=== PATIENT | female | born 1935 | race Two or more races ===

== ENCOUNTER 2023-08-09 19:12 | Inpatient (IN) | payer OTHER ==
[~2023-08-09] VITALS: Ht 152.4 cm; Wt 45.4 kg
[2023-08-09] MEDS ORDERED: LIPITOR40 MG (19:14)
[2023-08-09 20:20] LABS: HEMATOCRIT 39.2 % (36.0-45.00); HEMOGLOBIN 12.1 g/dL (12.0-15.00); MEAN CELL VOLUME 85.2 fL (80.00-100.00); MEAN CORPUSCULAR HEMOGLOBIN 26.4 pg (27.00-32.0); PLATELET COUNT 363 K/uL (150-450); RED CELL DISTRIBUTION WIDTH 16.5 % (11.5-14.5)
[2023-08-09 20:47] LABS: CALCIUM 9.4 mg/dL (8.5-10.1); CREATININE SERUM 0.82 mg/dL (0.55-1.02); GFR 65.79; POTASSIUM 3.96 mEq/L (3.5-5.1)
[2023-08-09 22:43] LABS: PH,URINE 6.5 (5.0-8.0); URINE APPEARANCE Clear; URINE BILIRRUBIN Negative (NEGATIVE); URINE BLOOD Negative; URINE COLOR Dark Yellow; URINE GLUCOSE Negative (NEGATIVE); URINE LEUKOCYTE Negative; URINE NITRATE Negative
[2023-08-09 22:48] LABS: URINE BACTERIA 26.5 uL (0.0-1933); URINE EPITHELIAL CELLS 16.7 uL (0.0-38.8); URINE RBC 19.6 uL (0.0-20.8)
[2023-08-09 22:51] LABS: URINE PROTEIN 100 (NEGATIVE)
[2023-08-10 05:48] LABS: INR 1.36; PARTIAL THROMBOPLASTIN TIME 24.1 SECONDS (22.0-34.0)
[2023-08-12 08:22] LABS: CALCIUM 7.8 mg/dL (8.5-10.1); CREATININE SERUM 1.03 mg/dL (0.55-1.02); GFR 50.57
[2023-08-13 07:59] LABS: HEMATOCRIT 30.3 % (36.0-45.00); HEMOGLOBIN 9.9 g/dL (12.0-15.00); MEAN CELL VOLUME 82.8 fL (80.00-100.00); MEAN CORPUSCULAR HGB CONC 32.6 g/dl (32.0-36.0); PLATELET COUNT 314 K/uL (150-450); RED BLOOD COUNT 3.66 M/uL (4.00-6.00)
[2023-08-13 08:06] LABS: CALCIUM 7.3 mg/dL (8.5-10.1); CREATININE SERUM 0.99 mg/dL (0.55-1.02); GFR 52.93
[2023-08-13 09:20] LABS: POTASSIUM 2.76 mEq/L (3.5-5.1)
[2023-08-14 07:30] LABS: ALBUMIN 1.5 gm/dL (3.4-5.0); BILIRUBIN TOTAL 0.37 mg/dL (0.3-1.2); CALCIUM 7.3 mg/dL (8.5-10.1); CREATININE SERUM 0.86 mg/dL (0.55-1.02); GFR 62.27; GLOBULINA 3.1 G/DL (2.4-3.5); POTASSIUM 3.04 mEq/L (3.5-5.1); TOTAL PROTEIN 4.6 gm/dL (6.4-8.2)
[2023-08-15 06:59] LABS: ALBUMIN 1.5 gm/dL (3.4-5.0); BILIRUBIN TOTAL 0.39 mg/dL (0.3-1.2); CALCIUM 7.3 mg/dL (8.5-10.1); CREATININE SERUM 0.73 mg/dL (0.55-1.02); GFR 75.24; GLOBULINA 3.4 G/DL (2.4-3.5); POTASSIUM 3.5 mEq/L (3.5-5.1); TOTAL PROTEIN 4.9 gm/dL (6.4-8.2)
[2023-08-16 08:18] LABS: ALBUMIN 1.4 gm/dL (3.4-5.0); BILIRUBIN TOTAL 0.4 mg/dL (0.3-1.2); CALCIUM 7.1 mg/dL (8.5-10.1); CREATININE SERUM 0.6 mg/dL (0.55-1.02); GFR 94.34; GLOBULINA 3.2 G/DL (2.4-3.5); POTASSIUM 3.23 mEq/L (3.5-5.1); TOTAL PROTEIN 4.6 gm/dL (6.4-8.2)
[2023-08-17 06:14] LABS: HEMOGLOBIN 10.3 g/dL (12.0-15.00); MEAN CELL VOLUME 81.5 fL (80.00-100.00); MEAN CORPUSCULAR HEMOGLOBIN 27.2 pg (27.00-32.0); MEAN CORPUSCULAR HGB CONC 33.3 g/dl (32.0-36.0); PLATELET COUNT 331 K/uL (150-450); RED BLOOD COUNT 3.81 M/uL (4.00-6.00); RED CELL DISTRIBUTION WIDTH 16.6 % (11.5-14.5)
[2023-08-17 07:10] LABS: ALBUMIN 1.4 gm/dL (3.4-5.0); BILIRUBIN TOTAL 0.5 mg/dL (0.3-1.2); CALCIUM 7.3 mg/dL (8.5-10.1); CREATININE SERUM 0.54 mg/dL (0.55-1.02); GFR 106.54; GLOBULINA 3.1 G/DL (2.4-3.5); POTASSIUM 3.4 mEq/L (3.5-5.1); TOTAL PROTEIN 4.5 gm/dL (6.4-8.2)
[2023-08-19 08:30] LABS: HEMATOCRIT 28.6 % (36.0-45.00); HEMOGLOBIN 9.6 g/dL (12.0-15.00); MEAN CELL VOLUME 81.5 fL (80.00-100.00); MEAN CORPUSCULAR HEMOGLOBIN 27.4 pg (27.00-32.0); MEAN CORPUSCULAR HGB CONC 33.6 g/dl (32.0-36.0); PLATELET COUNT 393 K/uL (150-450); RED BLOOD COUNT 3.51 M/uL (4.00-6.00); RED CELL DISTRIBUTION WIDTH 16.9 % (11.5-14.5)
[2023-08-21 09:42] LABS: HEMATOCRIT 25.5 % (36.0-45.00); MEAN CELL VOLUME 82.6 fL (80.00-100.00); MEAN CORPUSCULAR HEMOGLOBIN 27.9 pg (27.00-32.0); MEAN CORPUSCULAR HGB CONC 33.8 g/dl (32.0-36.0); PLATELET COUNT 312 K/uL (150-450); RED BLOOD COUNT 3.08 M/uL (4.00-6.00); RED CELL DISTRIBUTION WIDTH 17.2 % (11.5-14.5)
[2023-08-21 09:46] LABS: HEMOGLOBIN 8.6 g/dL (12.0-15.00)
[2023-08-21 10:09] LABS: ALBUMIN 1.5 gm/dL (3.4-5.0); BILIRUBIN TOTAL 0.53 mg/dL (0.3-1.2); CALCIUM 7.3 mg/dL (8.5-10.1); CREATININE SERUM 0.3 mg/dL (0.55-1.02); GFR 209.94; GLOBULINA 3.1 G/DL (2.4-3.5); POTASSIUM 3.22 mEq/L (3.5-5.1); TOTAL PROTEIN 4.6 gm/dL (6.4-8.2)
[2023-08-22 09:05] LABS: ALBUMIN 1.4 gm/dL (3.4-5.0); BILIRUBIN TOTAL 0.49 mg/dL (0.3-1.2); CREATININE SERUM 0.31 mg/dL (0.55-1.02); GFR 202.15; POTASSIUM 3.66 mEq/L (3.5-5.1); TOTAL PROTEIN 4.4 gm/dL (6.4-8.2)
[2023-08-22 13:05] LABS: HEMATOCRIT 25.4 % (36.0-45.00); MEAN CORPUSCULAR HGB CONC 32.7 g/dl (32.0-36.0); PLATELET COUNT 364 K/uL (150-450); RED CELL DISTRIBUTION WIDTH 17.3 % (11.5-14.5)
[2023-08-22 13:10] LABS: MEAN CORPUSCULAR HEMOGLOBIN 26.7 pg (27.00-32.0)
[2023-08-22 13:11] LABS: HEMOGLOBIN 8.3 g/dL (12.0-15.00)
[2023-08-24 13:36] LABS: HEMATOCRIT 33.7 % (36.0-45.00); HEMOGLOBIN 10.9 g/dL (12.0-15.00); MEAN CELL VOLUME 84.3 fL (80.00-100.00); MEAN CORPUSCULAR HEMOGLOBIN 27.3 pg (27.00-32.0); MEAN CORPUSCULAR HGB CONC 32.4 g/dl (32.0-36.0); PLATELET COUNT 287 K/uL (150-450); RED CELL DISTRIBUTION WIDTH 16.4 % (11.5-14.5)
[2023-08-27 17:56] LABS: HEMATOCRIT 30.8 % (36.0-45.00); HEMOGLOBIN 10.5 g/dL (12.0-15.00); MEAN CORPUSCULAR HEMOGLOBIN 28.2 pg (27.00-32.0); PLATELET COUNT 218 K/uL (150-450); RED BLOOD COUNT 3.71 M/uL (4.00-6.00); RED CELL DISTRIBUTION WIDTH 16.7 % (11.5-14.5)
[2023-08-27 18:05] LABS: CREATININE SERUM 0.41 mg/dL (0.55-1.02); GFR 146.4
[2023-08-27 18:17] LABS: CALCIUM 6.1 mg/dL (8.5-10.1); POTASSIUM 2.58 mEq/L (3.5-5.1)
[2023-08-28 21:37] LABS: ALBUMIN 1.2 gm/dL (3.4-5.0); BILIRUBIN TOTAL 0.89 mg/dL (0.3-1.2); CREATININE SERUM 0.4 mg/dL (0.55-1.02); GFR 150.63; GLOBULINA 2.7 G/DL (2.4-3.5); POTASSIUM 3.96 mEq/L (3.5-5.1); TOTAL PROTEIN 3.9 gm/dL (6.4-8.2)
[2023-08-28 22:21] LABS: CALCIUM 6.3 mg/dL (8.5-10.1)
[2023-08-30 09:08] LABS: HEMATOCRIT 27.5 % (36.0-45.00); HEMOGLOBIN 9.4 g/dL (12.0-15.00); MEAN CELL VOLUME 82.5 fL (80.00-100.00); MEAN CORPUSCULAR HEMOGLOBIN 28.1 pg (27.00-32.0); PLATELET COUNT 225 K/uL (150-450); RED BLOOD COUNT 3.34 M/uL (4.00-6.00); RED CELL DISTRIBUTION WIDTH 16.9 % (11.5-14.5)
[2023-08-30 09:41] LABS: ALBUMIN 1.3 gm/dL (3.4-5.0); BILIRUBIN TOTAL 1.06 mg/dL (0.3-1.2); CALCIUM 6.6 mg/dL (8.5-10.1); CREATININE SERUM 0.39 mg/dL (0.55-1.02); GFR 155.1; GLOBULINA 2.8 G/DL (2.4-3.5); POTASSIUM 3.54 mEq/L (3.5-5.1); TOTAL PROTEIN 4.1 gm/dL (6.4-8.2)
[2023-09-01 16:10] LABS: HEMATOCRIT 28.5 % (36.0-45.00); HEMOGLOBIN 9.6 g/dL (12.0-15.00); MEAN CELL VOLUME 83.1 fL (80.00-100.00); MEAN CORPUSCULAR HEMOGLOBIN 27.9 pg (27.00-32.0); MEAN CORPUSCULAR HGB CONC 33.6 g/dl (32.0-36.0); PLATELET COUNT 224 K/uL (150-450); RED BLOOD COUNT 3.44 M/uL (4.00-6.00); RED CELL DISTRIBUTION WIDTH 17.6 % (11.5-14.5)
[2023-09-01 16:33] LABS: INR 1.31; PARTIAL THROMBOPLASTIN TIME 32.9 SECONDS (22.0-34.0); PROTHROMBIN TIME 13.5 SECONDS (9.0-11.5)
[2023-09-01 16:38] LABS: ALBUMIN 1.2 gm/dL (3.4-5.0); BILIRUBIN TOTAL 0.68 mg/dL (0.3-1.2); CREATININE SERUM 0.37 mg/dL (0.55-1.02); GFR 164.82; TOTAL PROTEIN 4.2 gm/dL (6.4-8.2)
[2023-09-01 16:47] LABS: CALCIUM 6.4 mg/dL (8.5-10.1); POTASSIUM 2.93 mEq/L (3.5-5.1)
[2023-09-01 19:32] LABS: CREATININE SERUM 0.32 mg/dL (0.55-1.02); GFR 194.88
[2023-09-01 19:51] LABS: CALCIUM 6.4 mg/dL (8.5-10.1); POTASSIUM 2.82 mEq/L (3.5-5.1)
[2023-09-02 08:04] LABS: CREATININE SERUM 0.33 mg/dL (0.55-1.02); GFR 188.07; POTASSIUM 4.56 mEq/L (3.5-5.1)
[2023-09-02 08:25] LABS: CALCIUM 6.5 mg/dL (8.5-10.1)
[2023-09-05 09:39] LABS: HEMATOCRIT 23.8 % (36.0-45.00); MEAN CELL VOLUME 82.2 fL (80.00-100.00); MEAN CORPUSCULAR HGB CONC 34.4 g/dl (32.0-36.0); PLATELET COUNT 176 K/uL (150-450); RED CELL DISTRIBUTION WIDTH 17.4 % (11.5-14.5)
[2023-09-05 09:40] LABS: HEMOGLOBIN 8.2 g/dL (12.0-15.00); MEAN CORPUSCULAR HEMOGLOBIN 28.2 pg (27.00-32.0)
[2023-09-05 09:46] LABS: CREATININE SERUM 0.32 mg/dL (0.55-1.02); GFR 194.88; POTASSIUM 3.39 mEq/L (3.5-5.1)
[2023-09-05 10:14] LABS: CALCIUM 6.3 mg/dL (8.5-10.1)
[2023-09-07 06:20] LABS: HEMATOCRIT 29.8 % (36.0-45.00); MEAN CELL VOLUME 83.6 fL (80.00-100.00); MEAN CORPUSCULAR HEMOGLOBIN 28.3 pg (27.00-32.0); MEAN CORPUSCULAR HGB CONC 33.8 g/dl (32.0-36.0); PLATELET COUNT 164 K/uL (150-450); RED BLOOD COUNT 3.56 M/uL (4.00-6.00); RED CELL DISTRIBUTION WIDTH 16.7 % (11.5-14.5)
[2023-09-07 07:13] LABS: HEMOGLOBIN 10.1 g/dL (12.0-15.00)
[2023-09-11 07:46] LABS: HEMATOCRIT 27.5 % (36.0-45.00); HEMOGLOBIN 9.2 g/dL (12.0-15.00); MEAN CORPUSCULAR HEMOGLOBIN 28.3 pg (27.00-32.0); MEAN CORPUSCULAR HGB CONC 33.3 g/dl (32.0-36.0); PLATELET COUNT 395 K/uL (150-450); RED BLOOD COUNT 3.23 M/uL (4.00-6.00); RED CELL DISTRIBUTION WIDTH 17.1 % (11.5-14.5)
[2023-09-11 08:11] LABS: BILIRUBIN TOTAL 0.37 mg/dL (0.3-1.2); GLOBULINA 2.5 G/DL (2.4-3.5); POTASSIUM 3.81 mEq/L (3.5-5.1); TOTAL PROTEIN 3.3 gm/dL (6.4-8.2)
[2023-09-11 08:26] LABS: GFR 300.3
[2023-09-11 08:29] LABS: ALBUMIN 0.8 gm/dL (3.4-5.0); CALCIUM 6.2 mg/dL (8.5-10.1); CREATININE SERUM 0.22 mg/dL (0.55-1.02)
[2023-09-12 08:07] LABS: HEMATOCRIT 27.4 % (36.0-45.00); HEMOGLOBIN 9.2 g/dL (12.0-15.00); MEAN CELL VOLUME 84.5 fL (80.00-100.00); MEAN CORPUSCULAR HEMOGLOBIN 28.4 pg (27.00-32.0); MEAN CORPUSCULAR HGB CONC 33.6 g/dl (32.0-36.0); RED BLOOD COUNT 3.24 M/uL (4.00-6.00); RED CELL DISTRIBUTION WIDTH 17.5 % (11.5-14.5)
[2023-09-12 08:34] LABS: PLATELET COUNT 463 K/uL (150-450)
[2023-09-12 08:36] LABS: BILIRUBIN TOTAL 0.32 mg/dL (0.3-1.2); GLOBULINA 2.7 G/DL (2.4-3.5); POTASSIUM 3.99 mEq/L (3.5-5.1); TOTAL PROTEIN 3.5 gm/dL (6.4-8.2)
[2023-09-12 09:14] LABS: ALBUMIN 0.8 gm/dL (3.4-5.0); CREATININE SERUM 0.22 mg/dL (0.55-1.02); GFR 300.3
[2023-09-12 09:16] LABS: CALCIUM 6.3 mg/dL (8.5-10.1)
[2023-09-12 12:41] LABS: PH,URINE 7.5 (5.0-8.0); URINE APPEARANCE Turbid; URINE BILIRRUBIN Negative (NEGATIVE); URINE BLOOD Large; URINE COLOR Yellow; URINE GLUCOSE Negative (NEGATIVE); URINE LEUKOCYTE Large; URINE NITRATE Negative
[2023-09-12 12:42] LABS: URINE EPITHELIAL CELLS 11.5 uL (0.0-38.8); URINE RBC 360.8 uL (0.0-20.8)
[2023-09-12 13:01] LABS: URINE PROTEIN 100 (NEGATIVE); URINE WBC > 5548.3 uL (0.0-23.2); URINE YEAST MANY /hpf
[2023-09-13 12:29] LABS: BILIRUBIN TOTAL 0.48 mg/dL (0.3-1.2); GLOBULINA 1.2 G/DL (2.4-3.5); POTASSIUM 4.02 mEq/L (3.5-5.1)
[2023-09-13 12:30] LABS: GFR 433.65
[2023-09-13 12:31] LABS: ALBUMIN 0.8 gm/dL (3.4-5.0); CREATININE SERUM 0.16 mg/dL (0.55-1.02)
[2023-09-13 14:00] LABS: MEAN CELL VOLUME 85.4 fL (80.00-100.00); MEAN CORPUSCULAR HEMOGLOBIN 27.5 pg (27.00-32.0); MEAN CORPUSCULAR HGB CONC 32.2 g/dl (32.0-36.0); PLATELET COUNT 539 K/uL (150-450); RED BLOOD COUNT 3.27 M/uL (4.00-6.00); RED CELL DISTRIBUTION WIDTH 17.6 % (11.5-14.5)
[2023-09-16 07:29] LABS: MEAN CELL VOLUME 84.3 fL (80.00-100.00); MEAN CORPUSCULAR HGB CONC 34.2 g/dl (32.0-36.0); PLATELET COUNT 484 K/uL (150-450); RED BLOOD COUNT 2.71 M/uL (4.00-6.00); RED CELL DISTRIBUTION WIDTH 17.7 % (11.5-14.5)
[2023-09-16 08:17] LABS: ALBUMIN 1.1 gm/dL (3.4-5.0); BILIRUBIN TOTAL 0.34 mg/dL (0.3-1.2); CALCIUM 7.1 mg/dL (8.5-10.1); GFR 218.32; GLOBULINA 2.6 G/DL (2.4-3.5); POTASSIUM 4.22 mEq/L (3.5-5.1); TOTAL PROTEIN 3.7 gm/dL (6.4-8.2)
[2023-09-16 08:19] LABS: CREATININE SERUM 0.29 mg/dL (0.55-1.02)
[2023-09-16 08:26] LABS: HEMATOCRIT 22.9 % (36.0-45.00); HEMOGLOBIN 7.8 g/dL (12.0-15.00); MEAN CORPUSCULAR HEMOGLOBIN 28.7 pg (27.00-32.0)
[2023-09-16 09:36] LABS: HEMATOCRIT 23.9 % (36.0-45.00); MEAN CELL VOLUME 84.6 fL (80.00-100.00); MEAN CORPUSCULAR HGB CONC 34.4 g/dl (32.0-36.0); RED BLOOD COUNT 2.83 M/uL (4.00-6.00); RED CELL DISTRIBUTION WIDTH 17.7 % (11.5-14.5)
[2023-09-16 09:39] LABS: MEAN CORPUSCULAR HEMOGLOBIN 28.9 pg (27.00-32.0)
[2023-09-16 09:40] LABS: HEMOGLOBIN 8.2 g/dL (12.0-15.00)
[2023-09-16 09:41] LABS: PLATELET COUNT 491 K/uL (150-450)
[2023-09-18 06:26] LABS: MEAN CORPUSCULAR HGB CONC 34.2 g/dl (32.0-36.0); PLATELET COUNT 406 K/uL (150-450); RED BLOOD COUNT 2.53 M/uL (4.00-6.00); RED CELL DISTRIBUTION WIDTH 17.6 % (11.5-14.5)
[2023-09-18 06:57] LABS: MEAN CORPUSCULAR HEMOGLOBIN 28.8 pg (27.00-32.0)
[2023-09-18 07:01] LABS: HEMATOCRIT 21.5 % (36.0-45.00); HEMOGLOBIN 7.3 g/dL (12.0-15.00)
[2023-09-18 13:29] LABS: ob NEGATIVE (NEGATIVE)
[2023-09-19 20:10] LABS: HEMATOCRIT 37.4 % (36.0-45.00); MEAN CORPUSCULAR HEMOGLOBIN 27.8 pg (27.00-32.0); PLATELET COUNT 341 K/uL (150-450); RED BLOOD COUNT 4.29 M/uL (4.00-6.00); RED CELL DISTRIBUTION WIDTH 15.9 % (11.5-14.5)
[2023-09-22 08:47] LABS: HEMOGLOBIN 12.3 g/dL (12.0-15.00); MEAN CELL VOLUME 87.3 fL (80.00-100.00); MEAN CORPUSCULAR HEMOGLOBIN 29.1 pg (27.00-32.0); MEAN CORPUSCULAR HGB CONC 33.3 g/dl (32.0-36.0); PLATELET COUNT 424 K/uL (150-450); RED BLOOD COUNT 4.23 M/uL (4.00-6.00); RED CELL DISTRIBUTION WIDTH 16.3 % (11.5-14.5)
[2023-09-22 19:26] LABS: ABG PH 7.475 (7.35-7.45); ABG pCO2 35.6 mmHg (35-45); BASE EXCESS 2.4 mmol/l; BICARBONATE 25.6 mmol/l (23-25); SaO2 96.8 %; Tco2 26.7 mmol/l
[2023-09-22 19:27] LABS: allen test SATISFACTORY; o2 21 %; puncture site RADIAL RIGHT
[2023-09-24 15:15] LABS: HEMATOCRIT 34.2 % (36.0-45.00); HEMOGLOBIN 11.6 g/dL (12.0-15.00); MEAN CELL VOLUME 85.7 fL (80.00-100.00); MEAN CORPUSCULAR HGB CONC 33.8 g/dl (32.0-36.0); PLATELET COUNT 476 K/uL (150-450); RED BLOOD COUNT 3.99 M/uL (4.00-6.00); RED CELL DISTRIBUTION WIDTH 16.3 % (11.5-14.5)
[2023-09-24 15:30] LABS: ALBUMIN 1.2 gm/dL (3.4-5.0); BILIRUBIN TOTAL 0.4 mg/dL (0.3-1.2); CALCIUM 7.6 mg/dL (8.5-10.1); GFR 271.6; GLOBULINA 2.7 G/DL (2.4-3.5); POTASSIUM 4.04 mEq/L (3.5-5.1); TOTAL PROTEIN 3.9 gm/dL (6.4-8.2)
[2023-09-24 16:23] LABS: CREATININE SERUM 0.24 mg/dL (0.55-1.02)
[2023-09-25 21:31] LABS: ABG PH 7.482 (7.35-7.45); ABG pCO2 39.3 mmHg (35-45)
[2023-09-25 21:32] LABS: BICARBONATE 28.7 mmol/l (23-25); SaO2 99.1 %; Tco2 29.9 mmol/l; allen test SATISFACTORY; o2 28 %; puncture site RADIAL RIGHT
[2023-09-26 06:57] LABS: ALBUMIN 1.3 gm/dL (3.4-5.0); BILIRUBIN TOTAL 0.37 mg/dL (0.3-1.2); CALCIUM 7.9 mg/dL (8.5-10.1); GFR 285.29; GLOBULINA 2.7 G/DL (2.4-3.5); POTASSIUM 4.11 mEq/L (3.5-5.1)
[2023-09-26 07:22] LABS: CREATININE SERUM 0.23 mg/dL (0.55-1.02)
[2023-09-26 07:27] LABS: HEMATOCRIT 32.9 % (36.0-45.00); MEAN CELL VOLUME 86.7 fL (80.00-100.00); MEAN CORPUSCULAR HGB CONC 33.2 g/dl (32.0-36.0); PLATELET COUNT 559 K/uL (150-450); RED CELL DISTRIBUTION WIDTH 16.3 % (11.5-14.5)
[2023-09-26 07:28] LABS: HEMOGLOBIN 10.9 g/dL (12.0-15.00); MEAN CORPUSCULAR HEMOGLOBIN 28.6 pg (27.00-32.0)
[2023-09-28 07:48] LABS: MEAN CELL VOLUME 86.5 fL (80.00-100.00); MEAN CORPUSCULAR HGB CONC 35.1 g/dl (32.0-36.0); PLATELET COUNT 436 K/uL (150-450); RED BLOOD COUNT 3.24 M/uL (4.00-6.00); RED CELL DISTRIBUTION WIDTH 15.8 % (11.5-14.5)
[2023-09-28 09:05] LABS: HEMOGLOBIN 9.8 g/dL (12.0-15.00); MEAN CORPUSCULAR HEMOGLOBIN 30.2 pg (27.00-32.0)
[2023-09-30 14:18] LABS: ALBUMIN 1.3 gm/dL (3.4-5.0); BILIRUBIN TOTAL 0.18 mg/dL (0.3-1.2); CALCIUM 7.7 mg/dL (8.5-10.1); CREATININE SERUM 0.31 mg/dL (0.55-1.02); GFR 202.15; GLOBULINA 2.5 G/DL (2.4-3.5); POTASSIUM 4.56 mEq/L (3.5-5.1); TOTAL PROTEIN 3.8 gm/dL (6.4-8.2)
[2023-10-01 08:12] LABS: HEMATOCRIT 33.1 % (36.0-45.00); MEAN CELL VOLUME 87.9 fL (80.00-100.00); MEAN CORPUSCULAR HEMOGLOBIN 29.1 pg (27.00-32.0); MEAN CORPUSCULAR HGB CONC 33.2 g/dl (32.0-36.0); PLATELET COUNT 547 K/uL (150-450); RED BLOOD COUNT 3.77 M/uL (4.00-6.00)
[2023-10-04 08:10] LABS: ALBUMIN 1.5 gm/dL (3.4-5.0); BILIRUBIN TOTAL 0.33 mg/dL (0.3-1.2); CALCIUM 7.5 mg/dL (8.5-10.1); POTASSIUM 5.13 mEq/L (3.5-5.1); TOTAL PROTEIN 4.5 gm/dL (6.4-8.2)
[2023-10-04 08:30] LABS: C-REACTIVE PROTEIN 3.11 MG/DL (0.00-0.29); CREATININE SERUM 0.26 mg/dL (0.55-1.02); GFR 247.64
[2023-10-04 11:33] LABS: HEMATOCRIT 29.7 % (36.0-45.00); HEMOGLOBIN 9.7 g/dL (12.0-15.00); MEAN CELL VOLUME 87.2 fL (80.00-100.00); MEAN CORPUSCULAR HEMOGLOBIN 28.6 pg (27.00-32.0); MEAN CORPUSCULAR HGB CONC 32.8 g/dl (32.0-36.0); PLATELET COUNT 432 K/uL (150-450)
[2023-10-04 11:43] LABS: ERYTHROCYTE SEDIMENTATION RATE 24 mm/hr
[2023-10-06 15:17] LABS: ABG PH 7.461 (7.35-7.45); ABG PO2 217.8 mmHg (80-100); ABG pCO2 34.6 mmHg (35-45); BASE EXCESS 0.8 mmol/l; BICARBONATE 24.1 mmol/l (23-25); SaO2 99.8 %; Tco2 25.2 mmol/l
[2023-10-06 15:18] LABS: allen test SATISFACTORY; o2 40 %; puncture site RADIAL RIGHT
[2023-10-06 15:38] LABS: MEAN CELL VOLUME 88.3 fL (80.00-100.00); RED BLOOD COUNT 3.05 M/uL (4.00-6.00); RED CELL DISTRIBUTION WIDTH 15.7 % (11.5-14.5)
[2023-10-06 15:45] LABS: HEMOGLOBIN 8.9 g/dL (12.0-15.00); MEAN CORPUSCULAR HEMOGLOBIN 29.1 pg (27.00-32.0); PLATELET COUNT 453 K/uL (150-450)
[2023-10-06 15:57] LABS: ALBUMIN 2.2 gm/dL (3.4-5.0); BILIRUBIN TOTAL 0.33 mg/dL (0.3-1.2); CALCIUM 7.7 mg/dL (8.5-10.1); CREATININE SERUM 0.36 mg/dL (0.55-1.02); GFR 170.11; GLOBULINA 2.1 G/DL (2.4-3.5); POTASSIUM 4.51 mEq/L (3.5-5.1); TOTAL PROTEIN 4.3 gm/dL (6.4-8.2)
[2023-10-09 15:13] LABS: CALCIUM 7.8 mg/dL (8.5-10.1); CREATININE SERUM 0.35 mg/dL (0.55-1.02); GFR 175.73; POTASSIUM 5.05 mEq/L (3.5-5.1)
[2023-10-09 21:03] LABS: MEAN CELL VOLUME 86.8 fL (80.00-100.00); MEAN CORPUSCULAR HEMOGLOBIN 29.6 pg (27.00-32.0); MEAN CORPUSCULAR HGB CONC 33.9 g/dl (32.0-36.0); PLATELET COUNT 382 K/uL (150-450); RED CELL DISTRIBUTION WIDTH 15.8 % (11.5-14.5)
[2023-10-09 21:05] LABS: HEMATOCRIT 22.6 % (36.0-45.00); HEMOGLOBIN 7.7 g/dL (12.0-15.00)
[2023-10-09 21:16] LABS: ALBUMIN 1.8 gm/dL (3.4-5.0); BILIRUBIN TOTAL 0.22 mg/dL (0.3-1.2); CALCIUM 7.4 mg/dL (8.5-10.1); CREATININE SERUM 0.31 mg/dL (0.55-1.02); GFR 202.15; GLOBULINA 2.3 G/DL (2.4-3.5); POTASSIUM 4.58 mEq/L (3.5-5.1); TOTAL PROTEIN 4.1 gm/dL (6.4-8.2)
[2023-10-09 21:18] LABS: C-REACTIVE PROTEIN 6.54 MG/DL (0.00-0.29)
[2023-10-10 19:29] LABS: HEMOGLOBIN 9.2 g/dL (12.0-15.00); MEAN CELL VOLUME 88.8 fL (80.00-100.00); MEAN CORPUSCULAR HEMOGLOBIN 29.2 pg (27.00-32.0); MEAN CORPUSCULAR HGB CONC 32.9 g/dl (32.0-36.0); PLATELET COUNT 397 K/uL (150-450); RED BLOOD COUNT 3.16 M/uL (4.00-6.00); RED CELL DISTRIBUTION WIDTH 15.6 % (11.5-14.5)
[2023-10-11 14:27] LABS: HEMATOCRIT 29.9 % (36.0-45.00); MEAN CELL VOLUME 88.4 fL (80.00-100.00); MEAN CORPUSCULAR HEMOGLOBIN 29.6 pg (27.00-32.0); MEAN CORPUSCULAR HGB CONC 33.5 g/dl (32.0-36.0); PLATELET COUNT 380 K/uL (150-450); RED BLOOD COUNT 3.38 M/uL (4.00-6.00); RED CELL DISTRIBUTION WIDTH 16.2 % (11.5-14.5)
[2023-10-11 21:25] LABS: URINE APPEARANCE Clear; URINE BACTERIA 197.7 uL (0.0-1933); URINE BILIRRUBIN Negative (NEGATIVE); URINE BLOOD Moderate; URINE COLOR Yellow; URINE GLUCOSE Negative (NEGATIVE); URINE LEUKOCYTE Large; URINE NITRATE Negative; URINE PROTEIN Negative (NEGATIVE); URINE RBC 157.7 uL (0.0-20.8); URINE UROBILINOGEN 0.2 E.U./dl; URINE WBC 241.4 uL (0.0-23.2)
[2023-10-11 21:43] LABS: URINE EPITHELIAL CELLS 0.4 uL (0.0-38.8)
[2023-10-11 21:44] LABS: URINE MUCUS SCANT; URINE YEAST MODERATE /hpf
== END 2023-10-13 01:20 | disposition expired | DRG 264 ==
LOC: ER 19:12 → EDBD 08-10 00:18 → SEC-K 08-10 00:18 → MEDI 08-10 00:18
PROVIDERS: General Practice; Internal Medicine; Internal Medicine Infectious Disease; Specialist; Student in an Organized Health Care Education/Training Program; ADMIT Internal Medicine; ATTEND Internal Medicine
PROC: 0JB70ZZ Excision of Back Subcutaneous Tissue and Fascia, Open Approach (ICD-10-PCS; principal; 2023-08-10)
PROC: 0KBP0ZZ Excision of Left Hip Muscle, Open Approach (ICD-10-PCS; 2023-08-16)
PROC: 0KBN0ZZ Excision of Right Hip Muscle, Open Approach (ICD-10-PCS; 2023-08-16)
PROC: 02HV33Z Insertion of Infusion Device into Superior Vena Cava, Percutaneous Approach (ICD-10-PCS; 2023-08-21)
PROC: 0KBP0ZZ Excision of Left Hip Muscle, Open Approach (ICD-10-PCS; 2023-08-23)
PROC: 0KBN0ZZ Excision of Right Hip Muscle, Open Approach (ICD-10-PCS; 2023-08-23)
PROC: 0JBR0ZZ Excision of Left Foot Subcutaneous Tissue and Fascia, Open Approach (ICD-10-PCS; 2023-08-23)
PROC: 30233N1 Transfusion of Nonautologous Red Blood Cells into Peripheral Vein, Percutaneous Approach (ICD-10-PCS; 2023-08-23)
PROC: 0KBP0ZZ Excision of Left Hip Muscle, Open Approach (ICD-10-PCS; 2023-08-28)
PROC: 0KBN0ZZ Excision of Right Hip Muscle, Open Approach (ICD-10-PCS; 2023-08-28)
PROC: 0DH67UZ Insertion of Feeding Device into Stomach, Via Natural or Artificial Opening (ICD-10-PCS; 2023-08-30)
PROC: 3E0G76Z Introduction of Nutritional Substance into Upper GI, Via Natural or Artificial Opening (ICD-10-PCS; 2023-08-30)
PROC: 3E0G76Z Introduction of Nutritional Substance into Upper GI, Via Natural or Artificial Opening (ICD-10-PCS; 2023-08-31)
PROC: 0DH60UZ Insertion of Feeding Device into Stomach, Open Approach (ICD-10-PCS; 2023-09-02)
PROC: 0JB70ZZ Excision of Back Subcutaneous Tissue and Fascia, Open Approach (ICD-10-PCS; 2023-09-04)
PROC: 0JB70ZZ Excision of Back Subcutaneous Tissue and Fascia, Open Approach (ICD-10-PCS; 2023-09-13)
PROC: 0JBQ0ZZ Excision of Right Foot Subcutaneous Tissue and Fascia, Open Approach (ICD-10-PCS; 2023-09-13)
PROC: 02PYX3Z Removal of Infusion Device from Great Vessel, External Approach (ICD-10-PCS; 2023-09-21)
PROC: B246ZZZ Ultrasonography of Right and Left Heart (ICD-10-PCS; 2023-09-22)
PROC: 05HM33Z Insertion of Infusion Device into Right Internal Jugular Vein, Percutaneous Approach (ICD-10-PCS; 2023-09-27)
PROC: 0JBR0ZZ Excision of Left Foot Subcutaneous Tissue and Fascia, Open Approach (ICD-10-PCS; 2023-10-05)
PROC: 0JBQ0ZZ Excision of Right Foot Subcutaneous Tissue and Fascia, Open Approach (ICD-10-PCS; 2023-10-05)
PROC: 0JB70ZZ Excision of Back Subcutaneous Tissue and Fascia, Open Approach (ICD-10-PCS; 2023-10-05)
PROC: 3E0F7GC Introduction of Other Therapeutic Substance into Respiratory Tract, Via Natural or Artificial Opening (ICD-10-PCS; 2023-10-06)
DX: I96 Gangrene, not elsewhere classified (principal); L89.154 Pressure ulcer of sacral region, stage 4; L89.624 Pressure ulcer of left heel, stage 4; L89.614 Pressure ulcer of right heel, stage 4; L89.214 Pressure ulcer of right hip, stage 4; A41.59 Other Gram-negative sepsis; A41.81 Sepsis due to Enterococcus; A41.4 Sepsis due to anaerobes; R65.21 Severe sepsis with septic shock; J18.9 Pneumonia, unspecified organism; L02.212 Cutaneous abscess of back [any part, except buttock and flank]; I69.354 Hemiplegia and hemiparesis following cerebral infarction affecting left non-dominant side; E87.0 Hyperosmolality and hypernatremia; Z68.1 Body mass index [BMI] 19.9 or less, adult; R64 Cachexia; E46 Unspecified protein-calorie malnutrition; B37.49 Other urogenital candidiasis; J90 Pleural effusion, not elsewhere classified; D64.89 Other specified anemias; E87.6 Hypokalemia; I10 Essential (primary) hypertension; E03.9 Hypothyroidism, unspecified; R63.0 Anorexia; R13.19 Other dysphagia; R19.7 Diarrhea, unspecified; R60.1 Generalized edema; R06.03 Acute respiratory distress; F03.90 Unspecified dementia, unspecified severity, without behavioral disturbance, psychotic disturbance, mood disturbance, and anxiety; Z74.01 Bed confinement status; Z88.0 Allergy status to penicillin; Y95 Nosocomial condition; Z66 Do not resuscitate